=== PATIENT | female | born 1990 | race Hispanic/Latino ===

== ENCOUNTER 2019-11-16 16:54 | Inpatient (IN) | payer BC ==
[2019-11-16] MEDS ORDERED: miSOPROStoL 100 MCG TAB VAG SCH (17:00)
[2019-11-16] MEDS ORDERED: Ringers Lactate 1,000 ML IV PRN (17:09)
[2019-11-16] MEDS ORDERED: METHYLERGONOVINE 0.2MG/ML AMP IM PRN (17:09)
[2019-11-16] MEDS ORDERED: PROMETHAZINE INJ 25 MG/ML AMP IV PRN (17:09)
[2019-11-16 17:46] LABS: Urine Appearance CLEAR; Urine Bilirubin NEGATIVE (NEG); Urine Blood NEGATIVE (NEG); Urine Color YELLOW; Urine Glucose NEGATIVE (NEG); Urine Protein NEGATIVE (NEG); Urine Urobilinogen 0.2 mg/dL (0.2-1.0); Urine pH 6.5 (5.0-7.0)
[2019-11-16 17:48] LABS: Absolute Lymphocytes (CBC) 1.4 K/uL (0.7-4.9); Basophils % 0.6 % (0-1.3); Hematocrit 39.9 % (36.0-45.0); Lymphocytes % 16.1 % (15.3-44.8); MPV 8.8 fL (7.6-11.3); RBC Red Blood Cell Count 4.46 M/uL (3.86-4.86)
[2019-11-16 17:49] LABS: Urine Microscopic Reflex ORDER UMIC
[2019-11-16] MEDS ORDERED: OXYTOCIN/LR 1,000 ML IV SCH (18:00)
[2019-11-16] MEDS ORDERED: Ringers Lactate 1,000 ML IV SCH (18:00)
[2019-11-16 18:06] LABS: Urine Bacteria <20 /HPF (<20); Urine Culture Reflex Order NOT NEEDED; Urine RBC <5 /HPF (NONE SEEN)
[2019-11-16] MEDS ORDERED: OXYTOCIN/LR 20 UNIT/1,000 ML BAG IV SCH (19:00)
[2019-11-16] MEDS ORDERED: miSOPROStoL 100 MCG TAB ONE (19:04)
[2019-11-16 20:51] VITALS: BMI 32.1
--- NOTE | 2019-11-16 21:16 | PREOPHP ---
Date of Admission: 11/16/2019 History Of Present Illness: Maria Del Carmen is a 29-year-old female, 1, para 0, now at approximately 41 weeks gestation. She has been followed by me during this without signi ficant complications other than prolonged . She is admitted for indicated induction of labo r. Because of unfavorable cervix, we will use misoprostol induction 25 mg q.4 hours intravaginally. has been active. She denies any vaginal bleeding or spotting. Past Medical History And Family History: Please see record. Review of Systems: She reports no recent cough, cold, fever, or chills. No recent nausea or vomiting. No breast knots or lumps. No vaginal bleeding or spotting. Baby has been active. She denies any bowel or bladder i ssues. Physical Examination: General: Reveals pleasant female, in no apparent distress. Neck: Supple without adenopathy or thyromegaly. Lungs: Clear. Cardiac: Regular rate and rhythm without murmurs. Breasts: Not examined. Abdomen: Estimated weight of approximately 7+ pounds. Pelvic: Cervix noted to be closed, 50% effaced, vertex, -1 station. Cervix is mid position. Extremities: No cyanosis, clubbing, or edema. Impression: A 41-week , unfavorable cervix. Plan: Patient will be admitted for Cytotec induction of labor. She had an increased chance of brandy finesse sections as discussed because of prolonged . She has signed a permit in my presence. BALTAZAR/DAVIDA Voice ID: [id number]
[2019-11-16] MEDS ORDERED: hydrOXYzine HCL 25 MG TAB PO ONE (21:30)
[2019-11-16 23:02] LABS: RPR (Rapid Plasma Reagin) NON-REACT (NON-REACT)
[2019-11-17] MEDS ORDERED: BUTORPHANOL 1 MG/ML INJ IV ONE (04:09)
[2019-11-17] MEDS ORDERED: ROPIVACAINE HCL 100 ML IV PRN (04:19)
[2019-11-17] MEDS ORDERED: FENTANYL CITR 100 MCG/2 ML IV ONE (04:22)
[2019-11-17] MEDS ORDERED: ROPIVACAINE HCL 0.2% 20ML AMP IV SCH (05:00)
--- NOTE | 2019-11-17 05:59 | P.PN ---
Date of Service: 11/17/19 SROM, epidural placed, cx now 3+cm/85%effaced, vtx, 0 station with bulging lower uterine segment. Some variable decell's noted recently, will position, administer O2 and observe for progress and FHT reactivity.
[2019-11-17] MEDS ORDERED: NA CIT/CITRIC AC 30 ML ORAL UDC PO ONE (10:30)
[2019-11-17] MEDS ORDERED: METOCLOPRAMIDE 10 MG/2mL INJ ONE (10:40)
[2019-11-17] MEDS ORDERED: FAMOTIDINE 20 MG/2 ML VIAL IV ONE (10:40)
[2019-11-17] MEDS ORDERED: NA CIT/CITRIC AC 30 ML ORAL UDC ONE (10:40)
[2019-11-17] MEDS ORDERED: CEFAZOLIN/SWI 2gm 2 GM/20 ML SYR ONE (10:41)
[2019-11-17] MEDS ORDERED: LIDOCAINE 2% W/EPI 1:200,000 MPF 20 ML VIAL IM ONE (10:51)
[2019-11-17] MEDS ORDERED: ONDANSETRON 4 MG/2 ML VIAL ONE (10:52)
[2019-11-17] MEDS ORDERED: MORPHINE SULFATE/PF 1 MG/ML (10 ML AMP) ONE (10:52)
[2019-11-17] MEDS ORDERED: OXYTOCIN 10 UNIT/ML ML IV ONE (10:52)
[2019-11-17] MEDS ORDERED: METOCLOPRAMIDE 10 MG/2mL INJ IV SCH (11:00)
[2019-11-17] MEDS ORDERED: CEFAZOLIN 2 GM in NA CHLORIDE 0.9% 100 ML IVPB SCH (11:00)
[2019-11-17] MEDS ORDERED: NS 0.9% VIAL 10 ML ONE (11:04)
[2019-11-17] MEDS ORDERED: METHYLERGONOVINE 0.2MG/ML AMP IM PRN (12:10)
[2019-11-17] MEDS ORDERED: KETOROLAC 30 MG/ML INJ IV PRN (12:10)
[2019-11-17] MEDS ORDERED: Oxycodone HCl/Acetaminophen 1 TAB TAB PO PRN (12:10)
[2019-11-17] MEDS ORDERED: ONDANSETRON 4 MG (ODT) TAB PO PRN (12:10)
[2019-11-17] MEDS ORDERED: METHYLERGONOVINE 0.2 MG TAB PO PRN (12:10)
--- NOTE | 2019-11-17 12:14 | P.BOP ---
Preoperative diagnosis: 41wk , FTP, NRFHT's Postoperative diagnosis: Same, viable male Primary procedure: Supervisor [place] [employer] [place]: Teresa Holley Estimated blood loss: 900ml Anesthesia: epidural Complications: None Drain(s): Urinary catheter Transferred to: Other (273) Condition: Good
[2019-11-17] MEDS ORDERED: OXYTOCIN/LR 20 UNIT/1,000 ML BAG IV SCH (13:00)
[2019-11-18 06:49] LABS: Absolute Lymphocytes (CBC) 1.6 K/uL (0.7-4.9); Basophils % 0.4 % (0-1.3); Hematocrit 30.8 % (36.0-45.0); Lymphocytes % 12.1 % (15.3-44.8); MPV 8.6 fL (7.6-11.3); RBC Red Blood Cell Count 3.48 M/uL (3.86-4.86)
--- NOTE | 2019-11-18 07:47 | P.PN ---
Date of Service: 11/18/19 S-NO complaints O-Afeb, vs stable, hct 30 post op, abdomen soft but some gas distention, bandage dry A-Satisfactory P-Ambulate, regular diet, Mylicon tabs, D/C IV and Jauregui.
[2019-11-18] MEDS ORDERED: SIMETHICONE 80 MG TAB PO SCH (09:00)
[2019-11-18] MEDS ORDERED: FAMOTIDINE 20 MG/2 ML VIAL IV ONE (10:33)
[2019-11-18] MEDS: Oxycodone HCl/Acetaminophen 1 TAB TAB PO PRN (20:25)
[2019-11-19] MEDS: Oxycodone HCl/Acetaminophen 1 TAB TAB PO PRN ×2 (02:00→07:49)
[2019-11-19 07:56] VITALS: BP 121/80; TEMP 97.7
[2019-11-19] MEDS ORDERED: MEASLES,MUMPS,RUBELLA VAC 0.5ML SQVAC ONE (09:20)
[2019-11-19 20:47] LABS: HBsAG Nonreactive (Nonreactive)
--- NOTE | 2019-11-20 08:21 | OP ---
Surgeon: Josh Gonzalez MD Preoperative Diagnoses: 41 week , failure to progress in labor, nonreassuring heart r ate. Procedures: Epidural anesthesia, primary section, delivery of viable male . Postoperative Diagnosis: 41 week , failure to progress in labor, nonreassuring heart rate. Description Of Procedure: After satisfactory level of epidural anesthesia was obtained, the patient had received 2 g of Ancef for antibiotic prophylaxis. Vaginal prep with Betadine was performed. Fol ey catheter was in place. A Pfannenstiel skin incision was made, carried down to the fascia, fascia incised with a combination of sharp and blunt dissection. This was from the underlying rec tus muscles, these were in the midline. The peritoneum identified and incised. Bladder fl ap was developed. A low-transverse uterine incision was made, 8 pounds 7 ounce male infant, 9 and 9 was delivered. Cord was clamped, cut, and the placed in a warmer. Cord blood was obtai sandra. The placenta was manually removed. The uterus was then exteriorized. The uterus was closed in 2 layers with running nonlocking suture of 0 Vicryl. The second layer used to imbricate the first. 3-0 Vicryl suture was used to reapproximate the bladder flap. The uterus was returned to the perito sia cavity, which was cleaned of amniotic fluid, debris, and blood clot. The rectus muscles were ap proximated in midline with simple sutures of 0 Vicryl. The fascia was closed with a running suture o f #1 Vicryl from either margin to the middle. The skin was closed with simple subcutaneous sutures w ith 3-0 Vicryl, subdermal suture of 3-0 Vicryl, subcuticular suture of 4-0 Monocryl. Patient was jasmeet en to recovery room in satisfactory condition with SCDs in place. Jauregui catheter in place. Sponge a nd needle counts were correct x2. Tableau Administrator Surgeon: Dr. Kate. Anesthesia: Dr. Burns. Quantitative Blood Loss: 900 mL. She received 1 dose of methargen postdelivery because of the failure to progress and concern for uter ine atony. MPG/MODL Voice ID: [id number] Report ID: [id number]
--- NOTE | 2019-11-20 09:15 | DS ---
Date of Discharge: 11/19/2019 Final Hospital Discharge Diagnoses: 41 weeks , delivered. Delivery by section sec ondary to failure to progress in labor with nonreassuring heart rate. Complications: None. Procedures: Misoprostol induction of labor, Pitocin augmentation of labor, placement of epidural cat heter, primary section, delivery of viable male . Hospital Course: The patient is a 29-year-old female, 1, para 0, at 41 week s' gestation, admitted for misoprostol induction of labor secondary to prolonged . She reac hed 5 cm cervical dilatation, did not progress and with nonreassuring heart rate with intermitt ent late type of decelerations. She was delivered by primary section with epidural anesthes ia of 8 pounds 7 ounce male , 9 and 9. She was dismissed on the second postoperative day , ambulatory, on a select diet with routine post section activity restrictions, to be seen b ack in my office in 1 week, to continue taking her iron and vitamins and prescription for tr amadol 50 mg #20 for pain relief. Lab included an admission hemoglobin and hematocrit of 13.3 and 39 .9, dismissal 10.3 and 30.8. She is Rh positive blood type and rubella immune. She was dismissed w ith the usual post section activity restrictions. BALTAZAR/DAVIDA Voice ID: [id number] Report ID: [id number]
== END 2019-11-19 10:10 | disposition home or self-care (01) | DRG 788 ==
LOC: 2ND-WC 16:54
PROVIDERS: ADMIT Specialist; ATTEND Specialist
PROC: 3E0P7VZ Introduction of Hormone into Female Reproductive, Via Natural or Artificial Opening (ICD-10-PCS; principal; 2019-11-16)
PROC: 3E033VJ Introduction of Other Hormone into Peripheral Vein, Percutaneous Approach (ICD-10-PCS; 2019-11-16)
PROC: 10D00Z1 Extraction of Products of Conception, Low, Open Approach (ICD-10-PCS; 2019-11-17)
DX: O76 Abnormality in fetal heart rate and rhythm complicating labor and delivery (principal); O61.0 Failed medical induction of labor; Z3A.41 41 weeks gestation of pregnancy; Z37.0 Single live birth; Z23 Encounter for immunization
CPT/HCPCS: 36415; 81003; 81015; 85025; 86592; 86850; 86900; 86901; 87340; 88307; 90471; 90707; J0690; J2405; J2550; J2590; J2765; J2795; J3010; J7120